=== PATIENT | male | born 1980 | race Caucasian/White ===

== ENCOUNTER 2017-03-23 13:12 | Emergency (ER) | payer OTHER ==
[~2017-03-23] VITALS: Ht 185.4 cm; Wt 104.7 kg
[~2017-03-23 13:12] MED LIST: CLINDAMYCIN HC300 MG PO; MOTRIN600 MG PO; NOHOMEMEDS; ULTRAM50 MG PO
[2017-03-23 13:17] VITALS: BP 146/81
== END 2017-03-23 14:40 | disposition left against medical advice (07) ==
LOC: EME 13:12
DX: Z53.21 Procedure and treatment not carried out due to patient leaving prior to being seen by health care provider (principal)